=== PATIENT | male | born 1985 ===

== ENCOUNTER 2017-05-17 09:24 | Emergency (ER) | payer OTHER ==
[2017-05-17 09:30] VITALS: BP 144/99; PULSE 88; TEMP 97.9; O2SAT 98
--- NOTE | 2017-05-17 10:20 | C.PDOC ---
History Of Present Illness 31 y/o male presents to the ED for evaluation of right-sided trapezius pain which began around 1 week ago. Patient also reports reflux symptoms in the middle of the night. He notes occasional discomfort to his right lateral ankle; notes he twisted his right ankle around 1 year ago. Patient denies direct injury /trauma to affected area, neck pain, extremity numbness/weakness. Time Seen by Provider: 05/17/17 09:50 Chief Complaint (Nursing): Upper Extremity Problem/Injury History Per: Patient History/Exam Limitations: no limitations Onset/Duration Of Symptoms: Other (1 week ) Current Symptoms Are (Timing): Still Present Quality: "Pain" Additional History Per: Patient Past Medical History Reviewed: Historical Data, Nursing Documentation, Vital Signs Vital Signs: Last Vital Signs Temp 97.9 F 05/17/17 09:27 Pulse 88 05/17/17 09:27 Resp 18 05/17/17 10:36 BP 144/99 H 05/17/17 09:27 Pulse Ox 98 05/17/17 11:09 - Medical History PMH: Asthma Surgical History: No Surg Hx Family History: States: Unknown Family Hx - Social History Hx Tobacco Use: No Hx Alcohol Use: No Hx Substance Use: No - Immunization History Hx Tetanus Toxoid Vaccination: No Hx Influenza Vaccination: No Hx Pneumococcal Vaccination: No Review Of Systems Except As Marked, All Systems Reviewed And Found Negative. Musculoskeletal: Positive for: Other (+right trapezius tenderness, +occasional right ankle discomfort ). Negative for: Neck Pain Neurological: Negative for: Weakness, Numbness Physical Exam - Physical Exam Appears: Non-toxic, No Acute Distress Skin: Normal Color, Warm, Dry Head: Atraumatic, Normacephalic Eye(s): bilateral: Normal Inspection Oral Mucosa: Moist Neck: Supple Chest: Symmetrical, No Deformity, No Tenderness Cardiovascular: Rhythm Regular, No Murmur Respiratory: Normal Breath Sounds, No Rales, No Rhonchi, No Wheezing Back: Other (+tenderness to medial aspect of right trapezius ) Extremity: Normal ROM (right ankle ), No Tenderness (right ankle ), No Calf Tenderness, Capillary Refill (less than 2 seconds ), No Deformity, No Swelling Neurological/Psych: Oriented x3, Normal Speech, Normal Cognition Gait: Steady ED Course And Treatment O2 Sat by Pulse Oximetry: 98 (on RA) Pulse Ox Interpretation: Normal - Other Rad R ankle X-Ray: Interpreted by Me (neg) Interpretation: Impression: Negative acute. If pain persists, consider MRI. Progress Note: Right foot XR ordered and reviewed. Patient received Motrin PO and Pepcid PO. Medical Decision Making Medical Decision Making: R paraspinal trapezius strain/sprain GERD mild R ankle lateral ache x 1 yr after sprain, films neg. Disposition Doctor Will See Patient In The: Office Counseled Patient/Family Regarding: Studies Performed, Diagnosis - Disposition Referrals: [facility] [Outside] Disposition: HOME/ ROUTINE Disposition Time: 10:20 Condition: GOOD Additional Instructions: GERD: Pepcid 20 mg en la noche, y en la manana. no come nada 4 horas antes de acostar dieta hygenica Sigue con la Clinic para referencia al Gastroenterologo lesly necessario Tobillo: bolsa de hielo 1/2 hora cada hora ibuprofeno 400 cada 6 horas Sigue con la Clinic [facility] lesly necessario Estramiento muscular: bolsa de hielo 1/2 hora por hora, nada caliente Ibuprofeno 400-600 mg cada 6 horas No levanta nada pesada por 1 semana. Instructions: Ankle Sprain (ED), Muscle Strain (ED), Gastroesophageal Reflux Disease (ED) Print Language: GEORGIAN - Clinical Impression Clinical Impression: Trapezius strain, GERD (gastroesophageal reflux disease), Ankle sprain - Scribe Statement The provider has reviewed the documentation as recorded by the Scribe (Evelina Ragland) Provider Attestation: All medical record entries made by the Scribe were at my direction and personally dictated by me. I have reviewed the chart and agree that the record accurately reflects my personal performance of the history, physical exam, medical decision making, and the department course for this patient. I have also personally directed, reviewed, and agree with the discharge instructions and disposition.
[2017-05-17 10:39] VITALS: RESP 18
--- NOTE | 2017-05-17 10:46 | RAD ---
Right foot three views History: Lateral foot pain. Comparison: None available. Findings: Mild hallux valgus deformity. Type 1 os navicularis variant noted. No evidence of acute displaced fracture or dislocation. Impression: Negative acute. If pain persists, consider MRI.
== END 2017-05-17 10:39 | disposition home or self-care (01) ==
LOC: C.ER 09:24
DX: S29.012A Strain of muscle and tendon of back wall of thorax, initial encounter (principal); S93.401A Sprain of unspecified ligament of right ankle, initial encounter; X58.XXXA Exposure to other specified factors, initial encounter; K21.9 Gastro-esophageal reflux disease without esophagitis

== ENCOUNTER 2019-04-12 19:58 | Emergency (ER) | payer SELFPAY ==
--- NOTE | 2019-04-12 20:48 | C.PDOC ---
History Of Present Illness Presents presents with abdominal discomfort, especially left lower quadrant,since yesterday, Discomfort radiating to right shoulder. No f/c/n/v. Tolerating po Time Seen by Provider: 04/12/19 20:47 Chief Complaint (Nursing): Abdominal Pain History Per: Patient History/Exam Limitations: no limitations Onset/Duration Of Symptoms: Days Current Symptoms Are (Timing): Still Present Context: Other Severity: Moderate Pain Scale Rating Of: 4 Location Of Pain/Discomfort: LLQ Radiation Of Pain To:: Other (right shoulder) Quality Of Discomfort: Dull, Cramping Associated Symptoms: denies: Fever, Chills, Nausea, Vomiting Exacerbating Factors: None Alleviating Factors: None Last Bowel Movement: Today Recent travel outside of the [place]: No Additional History Per: Family Past Medical History Reviewed: Historical Data, Nursing Documentation, Vital Signs Vital Signs: Last Vital Signs Temp 98.4 F 04/12/19 20:31 Pulse 125 H 04/12/19 20:31 Resp 18 04/12/19 20:31 BP 111/77 04/12/19 20:31 Pulse Ox 95 04/12/19 20:31 Primary Care Provider: FAMILY PROVIDER,NO - Medical History PMH: Asthma Family History: States: No Known Family Hx - Social History Hx Tobacco Use: No Hx Alcohol Use: No Hx Substance Use: No - Immunization History Hx Tetanus Toxoid Vaccination: No Hx Influenza Vaccination: No Hx Pneumococcal Vaccination: No Review Of Systems Constitutional: Negative for: Fever, Chills ENT: Negative for: Throat Pain Cardiovascular: Negative for: Chest Pain Respiratory: Negative for: Shortness of Breath Gastrointestinal: Positive for: Abdominal Pain. Negative for: Nausea, Vomiting Genitourinary: Negative for: Dysuria Musculoskeletal: Positive for: Shoulder Pain Skin: Negative for: Rash Neurological: Negative for: Headache Psych: Negative for: Anxiety Physical Exam - Physical Exam Appears: Non-toxic, No Acute Distress Skin: Warm, Dry Eye(s): bilateral: Normal Inspection Oral Mucosa: Moist Neck: Supple Chest: Symmetrical Cardiovascular: Rhythm Regular Respiratory: No Rales, No Rhonchi, No Wheezing Gastrointestinal/Abdominal: Bowel Sounds (tympanic to percussion), Soft, Tenderness (llq), No Distention, No Guarding, No Rebound Back: No CVA Tenderness Male Genital: No Inguinal Tenderness Extremity: No Tenderness Extremity: Bilateral: Atraumatic Pulses: Left Dorsalis Pedis: Normal, Right Dorsalis Pedis: Normal Neurological/Psych: Oriented x3 Gait: Steady ED Course And Treatment - Laboratory Results Result Diagrams: 04/12/19 21:09 04/12/19 21:09 ECG: Interpreted By Me, Viewed By Me ECG Rhythm: Sinus Tachycardia (119), Nonspecific Changes O2 Sat by Pulse Oximetry: 95 Pulse Ox Interpretation: Normal Progress Note: Patient is resting comfortably, in no distress, abdomen is soft, no rebound or guarding, and is tolerating PO. Patient has no signs or symptoms to suggest surgical pathology. Patient was advised to follow up without fail with physician/clinic or to return to the ER for reevaluation in 1-2 days. Reevaluation Time: 03:27 Reassessment Condition: Improved Medical Decision Making Medical Decision Making: Upon provider reevaluation patient is feeling better, is medically stable, and requires no further treatment in the ED at this time. Patient will be discharged home with Rx for miralax, protonix. Counseling was provided and all questions were answered regarding diagnosis and need for follow up with the referred clinic. There is agreement to discharge plan. Return if symptoms persist or worsen. Disposition Counseled Patient/Family Regarding: Studies Performed, Diagnosis, Need For Followup, Rx Given - Disposition Referrals: [facility] [Outside] [facility] [Outside] Disposition: HOME/ ROUTINE Disposition Time: 20:47 Condition: FAIR Additional Instructions: Por favor regrese si los sntomas recurren. Prescriptions: Pantoprazole Sodium [Protonix] 40 mg PO DAILY #14 ect Polyethylene Glycol 3350 [Miralax] 17 gm PO DAILY #270 ml Instructions: Acute Abdomen (Belly Pain), Adult (DC), Constipation, Adult (DC) Forms: [employer] (Thai) Print Language: DOMINICAN - Clinical Impression Clinical Impression: Abdominal pain, Constipation
[2019-04-12 21:15] LABS: BASO % 0.5 % (0.0-2.0); EOS % 0.6 % (0.0-4.0); HEMOGLOBIN 16.3 g/dL (12.0-18.0); LYMPH # 1.1 K/uL (1.0-4.3); LYMPH % 15.2 % (20.0-40.0); MEAN CELL VOLUME 85.6 fL (80.0-94.0); MEAN CORPUSCULAR HEMOGLOBIN 29.8 pg (27.0-31.0); MEAN CORPUSCULAR HGB CONC 34.8 g/dL (33.0-37.0); MEAN PLATELET VOLUME 9.6 fL (7.2-11.7); MONO # 0.9 K/uL (0.0-0.8); MONO % 11.6 % (0.0-10.0); NEUT # 5.3 K/uL (1.8-7.0); NEUT % 72.1 % (50.0-75.0); NRBC % 0.1 % (0.0-2.0); RBC 5.47 Mil/uL (4.40-5.90); RED CELL DISTRIBUTION WIDTH 12.5 % (11.5-14.5); WHITE BLOOD COUNT 7.3 K/uL (4.8-10.8)
[2019-04-12 21:27] LABS: ALB/GLOB RATIO 1.2 (1.0-2.1); ALBUMIN 4.5 g/dL (3.5-5.0); ALT/SGPT 60 U/L (21-72); AST/SGOT 47 U/L (17-59); BLOOD UREA NITROGEN 16 mg/dL (9-20); CALCIUM 9.9 mg/dl (8.6-10.4); GFR NON-AFRICAN AMERICAN > 60; LIPASE 81 U/L (23-300)
[2019-04-12 21:31] LABS: INR 1.2; PARTIAL THROMBOPLASTIN TIME 33.7 SECONDS (21-34); PROTHROMBIN TIME 12.9 SECONDS (9.7-12.2)
[2019-04-12] MEDS ORDERED: Sodium Chloride 0.9% 2,000 ML IV ONE (21:36)
[2019-04-12 21:42] LABS: VENOUS BLOOD GAS PCO2 40 mmHg (40-60); VENOUS BLOOD GAS PO2 29 mm/Hg (30-55); VENOUS BLOOD PH 7.43 (7.32-7.43)
[2019-04-12 22:05] LABS: SQUAMOUS EPITHIAL < 1 /hpf (0-5); URINE BILIRUBIN NEGATIVE (NEGATIVE); URINE BLOOD NEGATIVE (NEGATIVE); URINE CLARITY Clear (Clear); URINE COLOR Yellow (YELLOW); URINE GLUCOSE (UA) NORMAL (Normal); URINE LEUKOCYTE ESTERASE NEG Leu/uL (Negative); URINE PROTEIN NEGATIVE (NEGATIVE)
[2019-04-13 01:02] VITALS: RESP 16
[2019-04-13 03:34] VITALS: BP 117/76; PULSE 74; TEMP 98.7; O2SAT 98
--- NOTE | 2019-04-13 08:28 | CT ---
Date of service: 04/13/2019 PROCEDURE: CT Abdomen and Pelvis without intravenous contrast HISTORY: 01/04/2017 COMPARISON: None. TECHNIQUE: CT scan of the abdomen and pelvis was performed without administration of intravenous contrast. Oral contrast was not administered. Coronal and sagittal reformatted images were obtained. Radiation dose: Total exam DLP = 917.45 mGy-cm. This CT exam was performed using one or more of the following dose reduction techniques: Automated exposure control, adjustment of the mA and/or kV according to patient size, and/or use of iterative reconstruction technique. FINDINGS: LOWER THORAX: There is dependent atelectasis in the lung bases. LIVER: Mild hepatomegaly and diffuse fatty liver. No gross lesion or ductal dilatation. GALLBLADDER AND BILE DUCTS: Well distended. No calcified gallstones. No common bile duct dilatation. PANCREAS: Normal in size. No gross lesion or ductal dilatation. SPLEEN: Normal in size. ADRENALS: Normal in size. No discrete nodule. KIDNEYS AND URETERS: Both kidneys are normal in size. No hydronephrosis or nephrolithiasis. VASCULATURE: Normal in caliber. No aortic aneurysm. No aortic atherosclerotic calcification or mural plaque present. BOWEL: Evaluation of the bowel is limited in the absence of oral contrast. The small bowel loops are normal in caliber. The colon is normal in size. No bowel dilatation or wall thickening. No bowel obstruction. APPENDIX: Normal appendix. PERITONEUM: No free fluid. No free air. LYMPH NODES: No enlarged lymph nodes. BLADDER: Well distended and normal in appearance. REPRODUCTIVE: The prostate gland is normal in size. BONES: No acute fracture. Within normal limits for the patient's age. OTHER FINDINGS: There are bilateral small fat containing inguinal hernias and small fat containing periumbilical hernia. IMPRESSION: No acute abdominal or pelvic abnormality. Fatty liver. A preliminary report was provided by [facility].
--- NOTE | 2019-04-13 12:10 | CARD ---
APPROVED REPORT Date of service: 04/12/2019 EKG Measurement Heart [id number] PA 150P40 [id number] <Conclusion> Sinus tachycardia Otherwise normal ECG
== END 2019-04-13 03:50 | disposition home or self-care (01) ==
LOC: SUPCPDRO 19:58 → C.ER 19:58
DX: K59.00 Constipation, unspecified (principal); R10.9 Unspecified abdominal pain
CPT/HCPCS: 74176; 80053; 81001; 82803; 83690; 85025; 85610; 85730; 87040; 93005; 96361; 96374; 99284; J1885; J7030

== ENCOUNTER 2019-04-18 11:53 | Emergency (ER) | payer OTHER ==
[2019-04-18] MEDS ORDERED: Magnesium Citrate Oral SOL (300 ml) PO ONE (14:35)
--- NOTE | 2019-04-18 14:58 | RAD ---
Date of service: 04/18/2019 HISTORY: pain, possible constipation COMPARISON: CT abdomen and pelvis without contrast performed 04/13/19 TECHNIQUE: Two views obtained. FINDINGS: BOWEL: Nonobstructive bowel gas pattern. Moderate constipation. No definite free air. BONES: No acute osseous abnormality is detected. OTHER FINDINGS: None. IMPRESSION: Moderate constipation.
[2019-04-18 15:00] VITALS: O2SAT 100
[2019-04-18] MEDS ORDERED: Magnesium Citrate Oral SOL (300 ml) ONE (15:10)
--- NOTE | 2019-04-18 16:04 | C.PDOC ---
History Of Present Illness 33 y/o male presents to the ER complaining of abdominal pain which has been present for the past 6 days.Patient states that pains is across her lower abdomen and radiates upwards on the left side.Patient reports that he was evaluated for similar complaint in [place] [facility] on 04/12/19 and he had unremarkable CT with the exception of fatty liver. Time Seen by Provider: 04/18/19 13:19 Chief Complaint (Nursing): Abdominal Pain History Per: Patient History/Exam Limitations: no limitations Onset/Duration Of Symptoms: Days Current Symptoms Are (Timing): Still Present Severity: Moderate Past Medical History Reviewed: Historical Data, Nursing Documentation, Vital Signs Vital Signs: Last Vital Signs Temp 98.1 F 04/18/19 14:59 Pulse 70 04/18/19 14:59 Resp 18 04/18/19 14:59 BP 129/84 04/18/19 14:59 Pulse Ox 100 04/18/19 14:59 Primary Care Provider: FAMILY PROVIDER,NO - Medical History PMH: Asthma Other Surgeries: Hx of surgeries Family History: States: No Known Family Hx - Social History Hx Tobacco Use: No Hx Alcohol Use: No Hx Substance Use: No - Immunization History Hx Tetanus Toxoid Vaccination: No Hx Influenza Vaccination: No Hx Pneumococcal Vaccination: No Review Of Systems Except As Marked, All Systems Reviewed And Found Negative. Constitutional: Negative for: Fever, Chills Gastrointestinal: Positive for: Abdominal Pain, Constipation. Negative for: Nausea, Vomiting Physical Exam - Physical Exam Appears: No Acute Distress, Other (afebrile) Skin: Normal Color, Warm, Dry Head: Atraumatic, Normacephalic Eye(s): bilateral: Normal Inspection Nose: Normal Oral Mucosa: Moist Neck: Supple Chest: Symmetrical Cardiovascular: Rhythm Regular Respiratory: Normal Breath Sounds, No Rales, No Rhonchi, No Wheezing Gastrointestinal/Abdominal: Soft, Tenderness (mild tenderness on deep palpation), Distention (mild distention), No Guarding, No Rebound Neurological/Psych: Oriented x3, Normal Speech ED Course And Treatment O2 Sat by Pulse Oximetry: 100 (RA) Pulse Ox Interpretation: Normal - Other Rad [id number] X-Ray: Viewed By Me, Read By Radiologist Interpretation: Date of service: 04/18/2019. HISTORY: pain, possible constipation. COMPARISON: CT abdomen and pelvis without contrast performed 04/13/19. TECHNIQUE: Two views obtained. FINDINGS: BOWEL: Nonobstructive bowel gas pattern. Moderate constipation. No definite free air. BONES: No acute osseous abnormality is detected. OTHER FINDINGS: None. IMPRESSION: Moderate constipation. Medical Decision Making Medical Decision Making: Plan: --Magnesium Citrate PO --[id number] Disposition - Disposition Referrals: [facility] [Outside] Disposition: HOME/ ROUTINE Disposition Time: 16:01 Condition: STABLE Prescriptions: Peg Electrolyte Lavage Solut [Golytely] 4,000 ml PO ONCE #1 bottle Phosphate Enema [Fleet Enema 135 Ml] 30 ml RC DAILY #2 nma Polyethylene Glycol 3350 [Miralax] 1 packet PO HS #30 powd.pack Wheat Dextrin [Benefiber] 1 each PO DAILY #30 powd.pack Instructions: Constipation, Adult (DC) Forms: Gen Discharge Inst [facility], [facility] ([place]es) - POA Present On Arrival: None - Clinical Impression Clinical Impression: Constipation, Abdominal pain - Scribe Statement The provider has reviewed the documentation as recorded by the Sofy Fleming Provider Attestation: All medical record entries made by the Papaibe were at my direction and personally dictated by me. I have reviewed the chart and agree that the record accurately reflects my personal performance of the history, physical exam, medical decision making, and the department course for this patient. I have also personally directed, reviewed, and agree with the discharge instructions and disposition.
[2019-04-18 16:30] VITALS: BP 132/82; PULSE 68; RESP 20; TEMP 98.9
== END 2019-04-18 16:30 | disposition home or self-care (01) ==
LOC: C.ER 11:53
DX: K59.00 Constipation, unspecified (principal); R10.9 Unspecified abdominal pain